=== PATIENT | female | born 1945 | race Caucasian/White ===

== ENCOUNTER 2017-11-22 06:06 | Inpatient (IN) | payer OTHER ==
[2017-11-22] MEDS ORDERED: LIDOCAINE 2% (SDV) 5 ML INJ (07:00)
[2017-11-22] MEDS ORDERED: PROPOFOL 200 MG INJ (07:00)
[2017-11-22] MEDS ORDERED: BUPIVACAINE 0.75%/DEXT (SPINAL) 2 ML INJ (07:47)
[2017-11-22] MEDS ORDERED: EPHEDrine SULFATE 50 MG/5 ML SYG IV (08:00)
[2017-11-22] MEDS ORDERED: MEPERIDINE 25 MG INJ IV (08:00)
[2017-11-22] MEDS ORDERED: DIPHENHYDRAMINE 50 MG INJ IV (08:00)
[2017-11-22] MEDS ORDERED: ONDANSETRON 4 MG INJ IV (08:00)
[2017-11-22] MEDS ORDERED: FENTAnyl 50 MCG/ML VIAL IV (08:00)
[2017-11-22] MEDS ORDERED: PROCHLORPERAZINE 10 MG INJ IV (08:00)
[2017-11-22] MEDS ORDERED: HYDROmorphONE 1 MG/5 ML IV SYRINGE IV ×3 (08:00)
[2017-11-22] MEDS ORDERED: LABETALOL HCL 20MG INJ IV (08:00)
[2017-11-22] MEDS ORDERED: hydrALAzine 20 MG INJ IV (08:00)
[2017-11-22] MEDS ORDERED: POLYMYXIN B 500000 UNIT INJ (08:30)
[2017-11-22] MEDS: POLYMYXIN/BACITRACIN 1L IRRIG (08:30)
[2017-11-22] MEDS ORDERED: MIDAZOLAM 1 MG/ML 2 ML INJ (08:39)
[2017-11-22] MEDS ORDERED: morphine SULFATE/PF (10 MG/10 ML) INJ (08:39)
[2017-11-22] MEDS ORDERED: ROPIVACAINE 0.2% 20 ML VIAL (08:53)
[2017-11-22] MEDS ORDERED: CEFAZOLIN 1 GM INJ (09:03)
[2017-11-22] MEDS ORDERED: ONDANSETRON 4 MG INJ (09:58)
[2017-11-22] MEDS ORDERED: METOCLOPRAMIDE 10 MG INJ (09:58)
[2017-11-22] MEDS ORDERED: FAMOTIDINE 20 MG INJ (09:58)
[2017-11-22] MEDS: TRANEXAMIC ACID 1,000 MG in DEXTROSE 5% 100 ML IV (10:00)
[2017-11-22] MEDS ORDERED: NALOXONE (0.4 MG/ML) INJ IV (12:00)
[2017-11-22] MEDS ORDERED: oxyCODONE 5 MG TAB PO (12:00)
[2017-11-22] MEDS ORDERED: MAGNESIUM HYDROXIDE 30ML CUP PO (12:00)
[2017-11-22] MEDS: CEFAZOLIN 1 GM/50 ML (PMX) 50 ML IVPB ×2 (12:16→20:17)
[2017-11-22] MEDS: ONDANSETRON 4 MG INJ IV ×3 (13:09→23:53)
[2017-11-22] MEDS ORDERED: DEXTROSE 50% 50 ML SYRINGE IV ×2 (14:30)
[2017-11-22] MEDS ORDERED: GLUCOSE GEL 15 GRAM TUBE PO ×2 (14:30)
[2017-11-22] MEDS ORDERED: GLUCOSE GEL 15 GRAM TUBE BUCCAL (14:30)
[2017-11-22] MEDS ORDERED: GLUCAGON 1 MG INJ IM (14:30)
[2017-11-22] MEDS: SOD CHLORIDE 0.9% 1,000 ML IV (17:13)
[2017-11-22] MEDS: GLIMEPIRIDE 4 MG TAB PO (17:55)
[2017-11-22] MEDS: INSULIN ASPART [NOVOLOG] 3 ML PEN SC (17:55)
[2017-11-22] MEDS: ENOXAPARIN 30 MG/0.3 ML SYG SC (20:20)
[2017-11-23] MEDS: ACCU-CHEK XX (01:56)
[2017-11-23] MEDS: SOD CHLORIDE 0.9% 1,000 ML IV ×2 (02:48→15:19)
[2017-11-23] MEDS: oxyCODONE 5 MG TAB PO ×5 (03:39→17:14)
[2017-11-23] MEDS: CEFAZOLIN 1 GM/50 ML (PMX) 50 ML IVPB (03:58)
[2017-11-23 05:33] LABS: ADD MAN DIFF? NO
[2017-11-23 05:41] LABS: BASOPHILS % 0.4 % (0.0-2.0); HEMATOCRIT 36.5 % (37.0-47.0); HEMOGLOBIN 11.7 g/dl (12.0-16.0); LYMPHOCYTES # 1.2 10^3/ul (0.8-2.9); LYMPHOCYTES % 14.4 % (15.0-51.0); MEAN CORPUSCULAR HEMOGLOBIN 27.4 pg (29.0-33.0); MEAN CORPUSCULAR HGB CONC 32.1 g/dl (32.0-37.0); MEAN CORPUSCULAR VOLUME 85.5 fl (82.0-101.0); MEAN PLATELET VOLUME 9.9 fl (7.4-10.4); MONOCYTE # 1.1 10^3/ul (0.3-0.9); MONOCYTES % 12.4 % (0.0-11.0); NEUTROPHIL # 6.2 10^3/ul (1.6-7.5); NEUTROPHILS % 72.4 % (39.0-77.0); PLATELET COUNT 331 10^3/UL (140-415); RED BLOOD COUNT 4.27 10^6/ul (4.20-5.40); RED CELL DISTRIBUTION WIDTH 14.1 % (11.5-14.5)
[2017-11-23 05:41] LABS: WHITE BLOOD COUNT 8.5 10^3/ul (4.8-10.8)
[2017-11-23 05:56] LABS: INR 1.01; PROTIME 13.4 Sec (11.9-14.9)
[2017-11-23 06:13] LABS: ANION GAP 12 (8-16); BLOOD UREA NITROGEN 10 mg/dl (7-20); CALCIUM 8.6 mg/dl (8.4-10.2); CARBON DIOXIDE 27 mmol/L (21-31); CHLORIDE 103 mmol/L (97-110); GLUCOSE 195 mg/dl (70-220); POTASSIUM 4.1 mmol/L (3.5-5.1); SODIUM 138 mmol/L (135-144)
[2017-11-23] MEDS: ONDANSETRON 4 MG INJ IV ×2 (06:23→10:37)
[2017-11-23] MEDS: INSULIN ASPART [NOVOLOG] 3 ML PEN SC ×3 (07:50→17:25)
[2017-11-23] MEDS: metFORMIN 500 MG TAB PO (08:21)
[2017-11-23] MEDS: LEVOTHYROXINE 125 MCG TAB PO (08:21)
[2017-11-23] MEDS: GLIMEPIRIDE 4 MG TAB PO ×2 (08:21→17:14)
[2017-11-23] MEDS: DOCUSATE SODIUM 100 MG CAP PO ×2 (08:21→20:28)
[2017-11-23] MEDS: ENOXAPARIN 30 MG/0.3 ML SYG SC ×2 (08:24→20:32)
[2017-11-23] MEDS: ATORVASTATIN 20 MG TAB PO (20:27)
[2017-11-24] MEDS: SOD CHLORIDE 0.9% 1,000 ML IV ×3 (01:27→18:19)
[2017-11-24] MEDS: ACCU-CHEK XX (01:27)
[2017-11-24 05:07] LABS: ADD MAN DIFF? NO
[2017-11-24 05:32] LABS: BASOPHILS % 0.2 % (0.0-2.0); LYMPHOCYTES # 1.3 10^3/ul (0.8-2.9); LYMPHOCYTES % 13.5 % (15.0-51.0); MEAN CORPUSCULAR HEMOGLOBIN 26.5 pg (29.0-33.0); MEAN CORPUSCULAR HGB CONC 31.3 g/dl (32.0-37.0); MEAN CORPUSCULAR VOLUME 84.9 fl (82.0-101.0); MEAN PLATELET VOLUME 10.4 fl (7.4-10.4); MONOCYTE # 1.1 10^3/ul (0.3-0.9); MONOCYTES % 11.3 % (0.0-11.0); NEUTROPHIL # 7.3 10^3/ul (1.6-7.5); NEUTROPHILS % 74.5 % (39.0-77.0); PLATELET COUNT 292 10^3/UL (140-415); RED BLOOD COUNT 3.77 10^6/ul (4.20-5.40); RED CELL DISTRIBUTION WIDTH 14.3 % (11.5-14.5)
[2017-11-24 05:32] LABS: WHITE BLOOD COUNT 9.7 10^3/ul (4.8-10.8)
[2017-11-24 05:39] LABS: INR 1.09; PROTIME 14.2 Sec (11.9-14.9); PT RATIO 1.1
[2017-11-24 05:56] LABS: ANION GAP 11 (8-16); BLOOD UREA NITROGEN 9 mg/dl (7-20); CALCIUM 8.4 mg/dl (8.4-10.2); CARBON DIOXIDE 28 mmol/L (21-31); CHLORIDE 103 mmol/L (97-110); CREATININE 0.55 mg/dl (0.44-1.00); GLUCOSE 185 mg/dl (70-220); POTASSIUM 3.8 mmol/L (3.5-5.1); SODIUM 138 mmol/L (135-144)
[2017-11-24] MEDS: LEVOTHYROXINE 125 MCG TAB PO (06:14)
[2017-11-24] MEDS: metFORMIN 500 MG TAB PO (08:16)
[2017-11-24] MEDS: DOCUSATE SODIUM 100 MG CAP PO ×2 (08:16→20:29)
[2017-11-24] MEDS: GLIMEPIRIDE 4 MG TAB PO ×2 (08:16→17:36)
[2017-11-24] MEDS: ENOXAPARIN 30 MG/0.3 ML SYG SC ×2 (08:17→20:31)
[2017-11-24] MEDS: INSULIN ASPART [NOVOLOG] 3 ML PEN SC ×3 (08:18→17:37)
[2017-11-24] MEDS: oxyCODONE 5 MG TAB PO (08:33)
[2017-11-24] MEDS: oxyCODONE 15 MG TAB PO ×2 (12:41→18:23)
[2017-11-24] MEDS: ATORVASTATIN 20 MG TAB PO (20:29)
[2017-11-25] MEDS: ACCU-CHEK XX (02:00)
[2017-11-25] MEDS: SOD CHLORIDE 0.9% 1,000 ML IV (04:53)
[2017-11-25 05:27] LABS: ADD MAN DIFF? NO
[2017-11-25 05:29] LABS: BASOPHILS % 0.2 % (0.0-2.0); EOSINOPHILS % 0.2 % (0.0-7.0); HEMATOCRIT 32.2 % (37.0-47.0); HEMOGLOBIN 10.3 g/dl (12.0-16.0); LYMPHOCYTES # 1.5 10^3/ul (0.8-2.9); MEAN CORPUSCULAR HEMOGLOBIN 26.6 pg (29.0-33.0); MEAN CORPUSCULAR VOLUME 83.2 fl (82.0-101.0); MONOCYTE # 0.9 10^3/ul (0.3-0.9); MONOCYTES % 9.1 % (0.0-11.0); NEUTROPHILS % 73.9 % (39.0-77.0); PLATELET COUNT 300 10^3/UL (140-415); RED BLOOD COUNT 3.87 10^6/ul (4.20-5.40); RED CELL DISTRIBUTION WIDTH 14.3 % (11.5-14.5)
[2017-11-25 05:29] LABS: WHITE BLOOD COUNT 9.5 10^3/ul (4.8-10.8)
[2017-11-25 05:59] LABS: ANION GAP 11 (8-16); BLOOD UREA NITROGEN 9 mg/dl (7-20); CALCIUM 8.8 mg/dl (8.4-10.2); CARBON DIOXIDE 28 mmol/L (21-31); CHLORIDE 103 mmol/L (97-110); CREATININE 0.46 mg/dl (0.44-1.00); GLUCOSE 127 mg/dl (70-220); POTASSIUM 3.7 mmol/L (3.5-5.1); SODIUM 138 mmol/L (135-144)
[2017-11-25 06:07] LABS: INR 1.02; PROTIME 13.5 Sec (11.9-14.9); PT RATIO 1.1
[2017-11-25] MEDS: DOCUSATE SODIUM 100 MG CAP PO (08:24)
[2017-11-25] MEDS: GLIMEPIRIDE 4 MG TAB PO (08:24)
[2017-11-25] MEDS: metFORMIN 500 MG TAB PO (08:25)
[2017-11-25] MEDS: ENOXAPARIN 30 MG/0.3 ML SYG SC (08:26)
[2017-11-25] MEDS: INSULIN ASPART [NOVOLOG] 3 ML PEN SC ×2 (08:27→12:29)
[2017-11-25] MEDS: LEVOTHYROXINE 125 MCG TAB PO (08:29)
[2017-11-25] MEDS: oxyCODONE 15 MG TAB PO (08:29)
[2017-11-25] MEDS: oxyCODONE 5 MG TAB PO (14:06)
== END 2017-11-25 14:55 | DRG 470 ==
LOC: REC 06:06 → MS1 12:53
PROVIDERS: Specialist
PROC: 0SRC0J9 Replacement of Right Knee Joint with Synthetic Substitute, Cemented, Open Approach (ICD-10-PCS; principal; 2017-11-22 08:00)
DX: M17.11 Unilateral primary osteoarthritis, right knee (principal); E11.9 Type 2 diabetes mellitus without complications; E03.9 Hypothyroidism, unspecified
CPT/HCPCS: 73560; 80048; 82962; 85025; 85610; 87086; 88304; 88311; 97110; 97116; 97161; 97165; 97530